=== PATIENT | female | born 1990 | race Caucasian/White ===

== ENCOUNTER 2016-05-07 12:53 | Emergency (ER) | payer OTHER ==
[~2016-05-07] VITALS: Ht 175.3 cm; Wt 102.0 kg
[2016-05-07 13:14] VITALS: BP 115/79
[2016-05-07 14:09] LABS: INFLUENZA A VIRAL ANTIGEN NEGATIVE; INFLUENZA B VIRAL ANTIGEN NEGATIVE
[2016-05-07] MEDS ORDERED: AUGMENTIN875 MG PO (14:21)
== END 2016-05-07 14:52 | disposition home or self-care (01) ==
LOC: EME 12:53
PROVIDERS: Nurse Practitioner Family
DX: J32.9 Chronic sinusitis, unspecified (principal)
CPT/HCPCS: 71020; 87502; 87651 90; 99281; 99283

== ENCOUNTER 2016-05-28 11:28 | Emergency (ER) | payer OTHER ==
[~2016-05-28] VITALS: Ht 175.3 cm; Wt 103.9 kg
[~2016-05-28 11:28] MED LIST: AUGMENTIN875 MG PO
[2016-05-28 11:39] VITALS: BP 122/73
[2016-05-28] MEDS ORDERED: INDOCIN25 MG PO (12:47)
== END 2016-05-28 13:23 | disposition home or self-care (01) ==
LOC: EME 11:28
PROC: 2W3CX1Z Immobilization of Right Lower Arm using Splint (ICD-10-PCS; principal; 2016-05-28)
DX: S56.911A Strain of unspecified muscles, fascia and tendons at forearm level, right arm, initial encounter (principal); S66.911A Strain of unspecified muscle, fascia and tendon at wrist and hand level, right hand, initial encounter; S63.501A Unspecified sprain of right wrist, initial encounter; X50.0XXA Overexertion from strenuous movement or load, initial encounter; F17.200 Nicotine dependence, unspecified, uncomplicated
CPT/HCPCS: 73090; 99281; 99284

== ENCOUNTER 2016-06-06 21:59 | Emergency (ER) | payer OTHER ==
[~2016-06-06] VITALS: Ht 175.3 cm; Wt 103.2 kg
[~2016-06-06 21:59] MED LIST changes: +INDOCIN25 MG PO
[2016-06-07 00:25] LABS: ADD MIUA? YES; BILIRUBIN NEGATIVE; BLOOD SMALL; COLOR AMBER ((YELLOW)); GLUCOSE (STRIP) NEGATIVE; KETONES 5; LEUKOCYTES NEGATIVE; NITRITE NEGATIVE; PROTEIN (STRIP) 30; SPECIFIC GRAVITY 1.031 (1.000-1.030); UROBILINOGEN 0.2 MG/DL (0.2-1.0)
[2016-06-07 00:29] LABS: HEMATOCRIT 41.4 % (36.0-46.0); MCH 28.3 PG (29.0-34.0); MCHC 32.1 G/DL (30.0-36.0); MCV 88.1 FL (83-99); MEAN PLAT.VOLUME 10.8 uM^3 (9.5-12.4); PLATELET COUNT 240 K/uL (156-360); RBC DIS.WIDTH-CV 12.1 % (11.8-14.6); RBC DIS.WIDTH-SD 39.5 % (39-53); WHITE BLOOD COUNT 9.6 K/uL (4.1-10.2)
[2016-06-07 00:43] LABS: CHLORIDE 107 mEq/L (99-109); SODIUM 140 mEq/L (136-147)
[2016-06-07 00:45] LABS: GLUCOSE 111 mg/dL (70-99)
[2016-06-07 00:46] LABS: ANION GAP 10 MEQ/L (2-14)
[2016-06-07 00:47] LABS: TOTAL BILIRUBIN 0.4 mg/dL (0.0-1.0)
[2016-06-07 00:48] LABS: ALKALINE PHOSPHATASE 52 IU/L (3-129)
[2016-06-07 00:49] LABS: GFR ESTIMATE (CALCULATED) > 59 mL/min/
[2016-06-07 00:50] LABS: UREA NITROGEN (BUN) 11 mg/dL (9-23)
[2016-06-07 00:52] LABS: BACTERIA 1+ /HPF; EPITHELIAL CELLS 1+ /HPF; MUCUS 2+ /LPF; RED BLOOD CELLS 0-5 /HPF (0-5); WHITE BLOOD CELLS 0-5 /HPF (0-5)
[2016-06-07 00:57] LABS: QUANTITATIVE HCG < 4.0 MIU/ML
[2016-06-07] MEDS ORDERED: KENALOG,ARISTOC80 G1 TP (01:06)
[2016-06-07 01:19] VITALS: BP 114/63
== END 2016-06-07 01:23 | disposition home or self-care (01) ==
LOC: EME 21:59 → RME 21:59
PROVIDERS: Nurse Practitioner Family
DX: E86.0 Dehydration (principal); R42 Dizziness and giddiness; S60.861A Insect bite (nonvenomous) of right wrist, initial encounter; S30.861A Insect bite (nonvenomous) of abdominal wall, initial encounter; W57.XXXA Bitten or stung by nonvenomous insect and other nonvenomous arthropods, initial encounter; R11.2 Nausea with vomiting, unspecified; R19.7 Diarrhea, unspecified; J02.9 Acute pharyngitis, unspecified; R30.0 Dysuria; R35.0 Frequency of micturition; R33.9 Retention of urine, unspecified; R10.9 Unspecified abdominal pain; F17.200 Nicotine dependence, unspecified, uncomplicated
CPT/HCPCS: 80053; 81003; 84702; 85027; 93005; 99281; 99284

== ENCOUNTER 2016-07-12 22:04 | Emergency (ER) | payer OTHER ==
[~2016-07-12] VITALS: Ht 175.3 cm; Wt 102.0 kg
[~2016-07-12 22:04] MED LIST changes: +KENALOG,ARISTOC80 G1 TP
[2016-07-12 23:05] LABS: HEMATOCRIT 42.8 % (36.0-46.0); MCH 28.3 PG (29.0-34.0); MCHC 32.7 G/DL (30.0-36.0); MCV 86.5 FL (83-99); MEAN PLAT.VOLUME 10.3 uM^3 (9.5-12.4); PLATELET COUNT 279 K/uL (156-360); RBC DIS.WIDTH-CV 12.4 % (11.8-14.6); RBC DIS.WIDTH-SD 39.3 % (39-53); RED BLOOD COUNT 4.95 M/uL (3.80-5.20); WHITE BLOOD COUNT 11.1 K/uL (4.1-10.2)
[2016-07-12 23:19] LABS: CHLORIDE 107 mEq/L (99-109); POTASSIUM 3.7 mEq/L (3.7-5.4); SODIUM 143 mEq/L (136-147)
[2016-07-12 23:20] LABS: GLUCOSE 95 mg/dL (70-99)
[2016-07-12 23:22] LABS: ANION GAP 12 MEQ/L (2-14)
[2016-07-12 23:24] LABS: GFR ESTIMATE (CALCULATED) > 59 mL/min/
[2016-07-12 23:25] LABS: UREA NITROGEN (BUN) 10 mg/dL (9-23)
[2016-07-12 23:33] LABS: QUANTITATIVE HCG < 4.0 MIU/ML
[2016-07-12 23:57] LABS: ADD MIUA? YES; BILIRUBIN NEGATIVE; BLOOD NEGATIVE; COLOR YELLOW ((YELLOW)); GLUCOSE (STRIP) NEGATIVE; KETONES NEGATIVE; LEUKOCYTES NEGATIVE; NITRITE NEGATIVE; PROTEIN (STRIP) NEGATIVE; SPECIFIC GRAVITY 1.019 (1.000-1.030); UROBILINOGEN 0.2 MG/DL (0.2-1.0)
[2016-07-13 00:50] LABS: BACTERIA NONE SEEN /HPF; EPITHELIAL CELLS RARE /HPF; MUCUS TRACE /LPF; RED BLOOD CELLS 0-5 /HPF (0-5); WHITE BLOOD CELLS 0-5 /HPF (0-5)
[2016-07-13] MEDS ORDERED: INDOCIN50 MG PO (00:57)
[2016-07-13 01:02] VITALS: BP 127/69
[2016-07-15 13:54] LABS: CHLAMYDIA TRACHOMATIS NEGATIVE; NEISSERIA GONORRHOEAE NEGATIVE
== END 2016-07-13 01:12 | disposition home or self-care (01) ==
LOC: RME 22:04 → EME 22:04 → RME 07-13 01:12
PROVIDERS: Physician Assistant
DX: N72 Inflammatory disease of cervix uteri (principal); F17.200 Nicotine dependence, unspecified, uncomplicated
CPT/HCPCS: 76856; 80048; 81003; 84702; 85027; 87210; 87491; 87591; 93975; 99281; 99284; J0696; J1885